=== PATIENT | male | born 1940 | race Caucasian/White ===

== ENCOUNTER 2020-11-14 07:20 | Day surgery (SDC) | payer MEDICARE, OTHER ==
[2020-11-12 13:38] LABS: BASOPHILS # (AUTO) 0.1 X10'3 (0-0.2); BASOPHILS % (AUTO) 0.8 % (0-1); HEMATOCRIT 47.1 % (42.0-52.0); HEMOGLOBIN 15.9 g/dl (14.0-17.9); MEAN CORPUSCULAR HGB CONC 33.8 g/dL (33.0-36.5)
[2020-11-12 13:40] LABS: EOSINOPHILS # (AUTO) 0.3 X10'3 (0-0.9); EOSINOPHILS % (AUTO) 1.8 % (0-6); LYMPHOCYTES % (AUTO) 20.2 % (21-51); MEAN CORPUSCULAR HEMOGLOBIN 32.3 PG (27.0-31.0); MEAN CORPUSCULAR VOLUME 95.4 FL (78-98); MEAN PLATELET VOLUME 7.2 FL (7.4-10.4); NEUTROPHILS # (AUTO) 10.3 X10'3 (1.8-7.7); NEUTROPHILS % (AUTO) 70.2 % (42-75); PLATELET COUNT 306 X10'3 (140-440); RED BLOOD COUNT 4.94 X10'6 (4.70-6.10); RED CELL DISTRIBUTION WIDTH 13.5 % (11.5-14.5); WHITE BLOOD COUNT 14.7 X10'3 (4.5-11.0)
[2020-11-12 13:53] LABS: ALANINE AMINOTRANSFERASE 32 U/L (12-78); ALBUMIN 3.6 G/DL (3.4-5.0); ALBUMIN/GLOBULIN RATIO 1.1 (1.1-1.5); ALKALINE PHOSPHATASE 113 IU/L (46-116); ANION GAP 9 (8-16); ASPARTATE AMINO TRANSFERASE 24 U/L (10-37); BILIRUBIN,TOTAL 0.3 MG/DL (0.1-1.0); BLOOD UREA NITROGEN 31 MG/DL (7-18); BUN/CREATININE RATIO 20.3 (5.4-32.0); CALCIUM 9.3 MG/DL (8.5-10.1); CHLORIDE 105 MMOL/L (99-107); CREATININE 1.53 MG/DL (0.60-1.10); GLUCOSE 106 MG/DL (70-104); POTASSIUM 3.4 MMOL/L (3.5-5.1); SODIUM 142 MMOL/L (135-145); TOTAL CARBON DIOXIDE 28.1 MMOL/L (24-32); TOTAL PROTEIN 6.9 G/DL (6.4-8.2); eGFR 44 ML/MIN
[2020-11-12 14:15] LABS: PARTIAL THROMBOPLASTIN TIME 25 SECONDS (22-32)
[2020-11-14] VITALS (14 sets, daily range): BP systolic 102–171; BP diastolic 67–98
[~2020-11-14] VITALS: Ht 177.8 cm; Wt 96.4 kg
[2020-11-14] MEDS ORDERED: FLUO-1 PO (08:05)
[2020-11-14] MEDS ORDERED: LEVO100T9 PO (08:05)
[2020-11-14] MEDS ORDERED: CHLO25TA10 PO (08:05)
[2020-11-14] MEDS ORDERED: normal saline 1,000 ML IV SCH (08:10)
[2020-11-14] MEDS ORDERED: LORazepam 0.5 MG tablet PO PRN (08:10)
[2020-11-14] MEDS ORDERED: nitroGLYCERIN 0.4mg SUBLingual tab SL PRN ×2 (08:10→10:20)
[2020-11-14] MEDS ORDERED: diphenhydrAMINE 25mg capsule PO PRN (08:10)
[2020-11-14] MEDS ORDERED: CHOL100046 PO (08:11)
[2020-11-14] MEDS ORDERED: ASPI-611 PO (08:11)
[2020-11-14] MEDS ORDERED: MULT-1172 PO (08:11)
[2020-11-14] MEDS ORDERED: PRED10TA23 PO (08:11)
[2020-11-14] MEDS ORDERED: ZINC50TA67 PO (08:11)
[2020-11-14] MEDS ORDERED: OMEG1CAP2 PO (08:11)
[2020-11-14] MEDS ORDERED: LIDOcaine 1% (10mg/ml)w/preservative injection 20ml MDV ONE (09:01)
[2020-11-14] MEDS ORDERED: midazolam 2 mg/2 ml injection ONE (09:01)
[2020-11-14] MEDS ORDERED: iohexol 350MG/ML 100ml bottle IV ONE (09:01)
[2020-11-14] MEDS ORDERED: fentaNYL/PF 50MCG/1 ML 2ML syringe ONE (09:01)
[2020-11-14] MEDS ORDERED: iohexol 350 MG/ML 50ML vial IV ONE (09:01)
[2020-11-14] MEDS ORDERED: HYDROcodone/acetaminophen 5mg/325mg tablet PO PRN (10:20)
[2020-11-14] MEDS ORDERED: ondansetron/PF 4mg/2ml inj IV PRN (10:20)
[2020-11-14] MEDS ORDERED: HYDROcodone/acetaminophen 10/325mg tab PO PRN (10:20)
[2020-11-14] MEDS ORDERED: proCHLORperazine 10 MG/2 ml inj IV PRN (10:20)
[2020-11-14] MEDS ORDERED: OXAZEpam 15mg capsule PO PRN (10:20)
== END 2020-11-14 16:50 | disposition home or self-care (01) ==
LOC: SSTAY O 07:20
PROVIDERS: ATTEND Internal Medicine Cardiovascular Disease
DX: R94.30 Abnormal result of cardiovascular function study, unspecified (principal); I25.10 Atherosclerotic heart disease of native coronary artery without angina pectoris; F32.9 Major depressive disorder, single episode, unspecified; I10 Essential (primary) hypertension; E03.9 Hypothyroidism, unspecified; M35.3 Polymyalgia rheumatica; E78.5 Hyperlipidemia, unspecified; Z79.899 Other long term (current) drug therapy
CPT/HCPCS: 36415; 71046; 80053; 85025; 85610; 85651; 85730; 93005; 93458; C1760; C1769; J1644; J2001; J2250; J3010; J7030; Q0163; Q9967; 99152; A4620; A6258